=== PATIENT | male | born 1970 | race Caucasian/White ===

== ENCOUNTER 2018-08-06 15:20 | Emergency (ER) | payer OTHER ==
--- NOTE | 2018-08-06 15:28 | EDPHY ---
H & P Stated Complaint: lower back strain and pain from right lower back to testicle Time Seen by Provider: 08/06/18 15:22 - Personal History Current Tetanus/Diphtheria Vaccine: Yes Current Tetanus Diphtheria and Acellular Pertussis (TDAP): Yes - Medical/Surgical History Hx Asthma: No Hx Chronic Respiratory Disease: No Hx Diabetes: No Hx Cardiac Disease: No Hx Renal Disease: No Hx Cirrhosis: No Hx Alcoholism: No Hx HIV/AIDS: No Hx Splenectomy or Spleen Trauma: No - Social History Smoking Status: Former smoker Constitutional: Initial Vital Signs Temperature (C) 36.6 C 08/06/18 15:22 Heart Rate 85 08/06/18 15:22 Blood Pressure 145/103 H 08/06/18 15:22 O2 Sat (%) 97 08/06/18 15:22 O2 Delivery Mode Nasal Cannula O2 (L/minute) 2 Allergies/Adverse Reactions: No Known Allergies Allergy (Unverified 08/06/18 15:26) Home Medications: Medication Instructions Recorded HYDROcodone/APAP 10/325 [[place] 1 - 2 each PO Q4-6PRN PRN #20 tab 08/06/18 10/325] Ondansetron Odt [Zofran Odt 4 mg 4 mg PO Q4 PRN #10 tab 08/06/18 (RX)] Medical Decision Making - Diagnostics Imaging Results: Imaging Impressions Abdomen CT 08/06/18 15:33 Impression: 1. Mild hepatic steatosis. 2. No CT evidence of appendicitis, abscess or bowel obstruction. Findings discussed with Leobardo Renee MD at 16:50 hour, 08/06/2018. Testicular Ultrasound 08/06/18 16:55 Impression: 1. Normal sonographic appearance of each testis. 2. Right-sided varicocele, however CT imaging earlier today did not reveal any evidence of a right-sided retroperitoneal obstructive process. Findings were discussed with Leobardo Renee MD at 17:36, on 08/06/2018. Imaging: Discussed imaging studies w/ house calls nurse practitioner Radiologist, I viewed and interpreted images myself ED Course/Re-evaluation: CHIEF COMPLAINT: Low back pain radiating to testicles HISTORY OF PRESENT ILLNESS: The patient is a 48 y/o male with a history of kidney stones complaining of a shooting pain from his right low back to his right testicle. Around one week ago he strained his low back. However, the pain has progressed and is exacerbated when he stands up or walks. The pain currently is primarily in his right testicle. This pain is different compared to his kidney stone as his prior kidney stone pain was constant and did not alleviate with change in position. No fever, headache, body aches, lightheadedness, chest pain, heart palpitations, shortness of breath, cough, abdominal pain, urinary or bowel complaints, numbness, paresthesias. REVIEW OF SYSTEMS: A 10 point review of systems was performed and is negative with the exception of the elements mentioned in the history of present illness. PHYSICAL EXAM: HR, BP, O2 Sat, RR. Temp noted General Appearance: Alert, well hydrated, appropriate, and non-toxic appearing. Head: Atraumatic without scalp tenderness or obvious injury Eyes: Pupils equal, round, reactive to light and accommodation, EOMI, no trauma , no injection. Ears: Clear bilaterally, no perforation, normal landmarks Nose: Atraumatic, no rhinorrhea, clear. Throat: There is no erythema or exudates, no lesions, normal tonsils, mucus membranes moist. Neck: Supple, 2+ carotid upstroke, nontender, no lymphadenopathy. Respiratory: No retractions, no distress, no wheezes, and no accessory muscle use. Lungs are clear to auscultation bilaterally. Cardiovascular: Regular rate and rhythm, no murmurs, rubs, or gallops. Bilateral carotid, radial, dorsalis pedis, and posterior tibial pulses intact. Good capillary refill all extremities. Gastrointestinal: RLQ tenderness to palpation. Abdomen is soft, non-distended, no masses, no rebound, no guarding, no peritoneal signs. Genitourinary: Right testicular tenderness to palpation. Musculoskeletal: Normal active ROM of all extremities, atraumatic. Neurological: Alert, appropriate, and interactive. The patient has normal DTRs and non-focal cranial nerves, motor, sensory, and cerebellar exam. Skin: No rashes, good turgor, no nodules on palpation. Past medical history: Kidney stones Past surgical history: Denies Family history: Denies Social history: at bedside, employed, lives in [place] DIAGNOSTICS/PROCEDURES/CRITICAL CARE TIME: Abdominopelvic CT: No acute findings. Testicular US: Right-sided variocele. DIFFERENTIAL DIAGNOSIS: The differential diagnosis for the patient's testicular pain included but was not limited to variocele, epididymitis, orchitis, referred pain from kidney stone, inguinal hernia, and torsion of the testicle. MEDICAL DECISION MAKING: The patient is a 48 y/o male with a history of kidney stones presenting with a shooting pain from his right low back to his right testicle. Around one week ago he strained his low back. However, the pain has progressed and is exacerbated when he stands up or walks. On exam he has RLQ and right testicular tenderness to palpation. Labs and abdominopelvic CT ordered; 1L IV NS, 1mg IV Dilaudid, 30mg IV Toradol, and 4mg IV Zofran administered. 1652: I spoke to Dr. Chaudhari, radiologist, regarding patient's abdominopelvic CT. There are no acute findings. Testicular US ordered. 1656: Reassessed patient and discussed normal laboratory and imaging findings. I have discussed plan for testicular US, which he is comfortable with. 1739: I spoke with Dr. Soto, radiologist, who reports that the patient has a right-sided variocele. 1744: Reassessed patient and discussed imaging findings. I have advised him to follow up with a urologist regarding the variocele. I have prescribed him [place] for pain and Zofran for nausea. Return precautions provided; patient is comfortable with this plan. - Data Points Laboratory Results: Laboratory Results 08/06/18 15:39 08/06/18 15:39 08/06/18 08/06/18 08/06/18 16:45 15:46 15:39 WBC RBC Hgb POC Hgb 18.0 gm/dL H gm/dL (13.7-17.5) Hct POC Hct 53 % H % (40-51) MCV MCH MCHC RDW Plt Count MPV Neut % (Auto) Lymph % (Auto) [place] % (Auto) Eos % (Auto) Baso % (Auto) Nucleat RBC Rel Count Absolute Neuts (auto) Absolute Lymphs (auto) Absolute Monos (auto) Absolute Eos (auto) Absolute Basos (auto) Absolute Nucleated RBC Immature Gran % Immature Gran # POC Sodium 143 mEq/L mEq/L (135-145) Sodium 138 mEq/L mEq/L (135-145) POC Potassium 3.9 mEq/L mEq/L (3.3-5.0) Potassium 4.2 mEq/L mEq/L (3.5-5.2) POC Chloride 104 mEq/L mEq/L (97-110) Chloride 105 mEq/L mEq/L (97-110) Carbon Dioxide 20 mEq/l L mEq/l (22-31) POC Total CO2 TNP Anion Gap 13 mEq/L mEq/L (6-14) POC BUN 19 mg/dL mg/dL (7-23) BUN 19 mg/dL mg/dL (7-23) Creatinine 1.0 mg/dL mg/dL (0.7-1.3) POC Creatinine 1.0 mg/dL mg/dL (0.7-1.3) Estimated GFR > 60 Glucose 115 mg/dL H mg/dL (70-100) POC Glucose 117 mg/dL H mg/dL (70-100) Calcium 10.1 mg/dL mg/dL (8.5-10.4) Total Bilirubin 0.8 mg/dL mg/dL (0.1-1.4) Conjugated Bilirubin 0.5 mg/dL mg/dL (0.0-0.5) Unconjugated Bilirubin 0.3 mg/dL mg/dL (0.0-1.1) AST 30 IU/L IU/L (17-59) ALT 47 IU/L IU/L (21-72) Alkaline Phosphatase 96 IU/L IU/L (38-126) Total Protein 7.7 g/dL g/dL (6.3-8.2) Albumin 4.7 g/dL g/dL (3.5-5.0) Lipase 125 IU/L IU/L (23-300) Urine Color YELLOW Urine Appearance CLEAR Urine pH 5.0 (5.0-7.5) Ur Specific [place] 1.035 H (1.002-1.030) Urine Protein NEGATIVE (NEGATIVE) Urine Ketones NEGATIVE (NEGATIVE) Urine Blood NEGATIVE (NEGATIVE) Urine Nitrate NEGATIVE (NEGATIVE) Urine Bilirubin NEGATIVE (NEGATIVE) Urine Urobilinogen NEGATIVE EU EU (0.2-1.0) Ur Leukocyte Esterase NEGATIVE (NEGATIVE) Urine RBC 1-3 /hpf /hpf (0-3) Urine WBC 1-3 /hpf /hpf (0-3) Ur Epithelial Cells TRACE /lpf /lpf (NONE-1+) Urine Mucus 1+ /lpf /lpf (NONE-1+) Urine Glucose NEGATIVE (NEGATIVE) 08/06/18 15:39 WBC 10.29 10^3/uL H 10^3/uL (3.80-9.50) RBC 5.67 10^6/uL 10^6/uL (4.40-6.38) Hgb 17.8 g/dL H g/dL (13.7-17.5) POC Hgb Hct 51.0 % % (40.0-51.0) POC Hct MCV 89.9 fL fL (81.5-99.8) MCH 31.4 pg pg (27.9-34.1) MCHC 34.9 g/dL g/dL (32.4-36.7) RDW 12.7 % % (11.5-15.2) Plt Count 320 10^3/uL 10^3/uL (150-400) MPV 10.2 fL fL (8.7-11.7) Neut % (Auto) 61.5 % % (39.3-74.2) Lymph % (Auto) 29.3 % % (15.0-45.0) [place] % (Auto) 6.9 % % (4.5-13.0) Eos % (Auto) 1.1 % % (0.6-7.6) Baso % (Auto) 0.7 % % (0.3-1.7) Nucleat RBC Rel Count 0.0 % % (0.0-0.2) Absolute Neuts (auto) 6.33 10^3/uL 10^3/uL (1.70-6.50) Absolute Lymphs (auto) 3.02 10^3/uL H 10^3/uL (1.00-3.00) Absolute Monos (auto) 0.71 10^3/uL 10^3/uL (0.30-0.80) Absolute Eos (auto) 0.11 10^3/uL 10^3/uL (0.03-0.40) Absolute Basos (auto) 0.07 10^3/uL 10^3/uL (0.02-0.10) Absolute Nucleated RBC 0.00 10^3/uL 10^3/uL (0-0.01) Immature Gran % 0.5 % % (0.0-1.1) Immature Gran # 0.05 10^3/uL 10^3/uL (0.00-0.10) POC Sodium Sodium POC Potassium Potassium POC Chloride Chloride Carbon Dioxide POC Total CO2 Anion Gap POC BUN BUN Creatinine POC Creatinine Estimated GFR Glucose POC Glucose Calcium Total Bilirubin Conjugated Bilirubin Unconjugated Bilirubin AST ALT Alkaline Phosphatase Total Protein Albumin Lipase Urine Color Urine Appearance Urine pH Ur Specific [place] Urine Protein Urine Ketones Urine Blood Urine Nitrate Urine Bilirubin Urine Urobilinogen Ur Leukocyte Esterase Urine RBC Urine WBC Ur Epithelial Cells Urine Mucus Urine Glucose Medications Given: Discontinued Medications Hydromorphone HCl (Dilaudid) 1 mg IVP EDNOW ONE Stop: 08/06/18 15:33 Last Admin: 08/06/18 15:43 Dose: 1 mg Sodium Chloride (Ns) 1,000 mls @ 0 mls/hr IV EDNOW ONE; Wide Open PRN Reason: Protocol Stop: 08/06/18 15:33 Last Admin: 08/06/18 15:43 Dose: 1,000 mls Ketorolac Tromethamine (Toradol) 30 mg IVP EDNOW ONE Stop: 08/06/18 15:33 Last Admin: 08/06/18 15:44 Dose: 30 mg Ondansetron HCl (Zofran) 4 mg IVP EDNOW ONE Stop: 08/06/18 15:33 Last Admin: 08/06/18 15:44 Dose: 4 mg Point of Care Test Results: Chemistry 08/06/18 15:46 POC Sodium 143 mEq/L mEq/L (135-145) POC Potassium 3.9 mEq/L mEq/L (3.3-5.0) POC Chloride 104 mEq/L mEq/L (97-110) POC Total CO2 TNP POC BUN 19 mg/dL mg/dL (7-23) POC Creatinine 1.0 mg/dL mg/dL (0.7-1.3) POC Glucose 117 mg/dL H mg/dL (70-100) ISTAT H&H 08/06/18 15:46 POC Hgb 18.0 gm/dL H gm/dL (13.7-17.5) POC Hct 53 % H % (40-51) Departure - Departure Disposition: Home, Routine, Self-Care Clinical Impression: Right varicocele Condition: Good Instructions: Testicle Pain (ED), Scrotal Pain (ED) Additional Instructions: 1. You have a right-sided variocele. 2. Take [place] as prescribed for pain. 3. Take Zofran as prescribed for nausea. 4. Followup with your urologist within one week. 5. Return to the emergency apartment for fever, severe pain, inability to urinate or other concerns. Referrals: DARRELL FRIEDMAN [Primary Care Provider] - As per Instructions Bandar Jimenez MD [Medical Doctor] - As per Instructions Prescriptions: HYDROcodone/APAP /325 [[place] 10/325] 1 - 2 each PO Q4-6PRN PRN #20 tab PRN Reason: Pain, Moderate Ondansetron Odt [Zofran Odt 4 mg (RX)] 4 mg PO Q4 PRN #10 tab PRN Reason: Nausea/Vomiting, Use 1st Report Scribed for: Leobardo Renee Report Scribed by: Nohemi Coelho Date of Report: 08/06/18 Time of Report: 16:10
[2018-08-06] MEDS ORDERED: ONDANSETRON 4 MG/2 ML VIAL IVP ONE (15:32)
[2018-08-06] MEDS ORDERED: HYDROmorphONE/DILAUDID 2 MG/ML INJ IVP ONE (15:32)
[2018-08-06] MEDS ORDERED: NS 1,000 ML IV ONE (15:32)
[2018-08-06] MEDS ORDERED: KETOROLAC 30 MG/1 ML SDV IVP ONE (15:32)
[2018-08-06 15:47] LABS: PLATELET COUNT 320 10^3/uL (150-400)
[2018-08-06] MEDS ORDERED: IOPAMIDOL (ISOVUE-300) 100 ML BTL ONE (16:21)
[2018-08-06 17:57] VITALS: BP 136/87
== END 2018-08-06 18:00 | disposition home or self-care (01) ==
DX: I86.1 Scrotal varices (principal); M54.5 Low back pain; K76.0 Fatty (change of) liver, not elsewhere classified; E86.9 Volume depletion, unspecified; Z87.891 Personal history of nicotine dependence
CPT/HCPCS: 82435-PO; 82565-PO; 82947-PO; 84132-PO; 84295-PO; 84520-PO; 85014-ER; 96374; J1170; J1885; J2405; Q9967